=== PATIENT | female | born 1985 | race African-American/Black ===

== ENCOUNTER 2017-10-10 08:19 | Emergency (ER) | payer SELFPAY ==
[2017-10-10] MEDS ORDERED: BENZONATATE 100 MG CAPSULE PO ONE (08:58)
--- NOTE | 2017-10-10 09:10 | ER Document Report ---
HPI - HPI Patient complains to provider of: sore throat, cough Onset: Other - 2 days ago Onset/Duration: Persistent Quality of pain: Achy, Other - coughing, sore throat Severity: Moderate Pain Level: 3 Context: Patient presents to emergency department with complaints of sore throat since and a coughing with some blood noted since yesterday. Denies fever vomiting diarrhea. Reports she works at a [employer] and has been around a lot of sick people. Reports history of bronchitis. Has not taken any OTC medications. Associated Symptoms: Nonproductive cough, Sore throat. denies: Body/muscle aches, Diarrhea, Fever Exacerbated by: Denies Relieved by: Denies Similar symptoms previously: No Recently seen / treated by doctor: No - REPRODUCTIVE Reproductive: DENIES: : Past Medical History - General Information source: Patient Last Menstrual Period: 2 weeks ago - Social History Smoking Status: Unknown if Ever Smoked Cigarette use (# per day): No Chew tobacco use (# tins/day): No Frequency of alcohol use: None Drug Abuse: None Occupation: [employer] Family History: Reviewed & Not Pertinent, Other - Negative for VTE Pulmonary Medical History: Reports: Hx Bronchitis Neurological Medical History: Reports: Hx Seizures - Began when she was 23 years old Endocrine Medical History: Reports: Hx Diabetes Mellitus Type 2 - gestational Past Surgical History: Reports: Hx Oral Surgery - Immunizations Hx Diphtheria, Pertussis, Tetanus Vaccination: Yes - 2008 Vertical Provider Document - CONSTITUTIONAL Agree With Documented VS: Yes Exam Limitations: No Limitations General Appearance: WD/WN, No Apparent Distress - INFECTION CONTROL TRAVEL OUTSIDE OF THE [place] IN LAST 30 DAYS: No - HEENT HEENT: Atraumatic, Normocephalic, Pharyngeal Erythema - opens mouth wide, clear voice, good airway. negative: Conjuctival Injection, Pharyngeal Exudate, Tympanic Membrane Red, Tympanic Membrane Bulging - NECK Neck: Normal Inspection, Supple. negative: Lymphadenopathy-Left, Lymphadenopathy-Right - RESPIRATORY Respiratory: Breath Sounds Normal, No Respiratory Distress - frequent dry cough. negative: Rhonchi, Wheezing - CARDIOVASCULAR Cardiovascular: Regular Rate - GI/ABDOMEN Gastrointestinal: Abdomen Soft, Abdomen Non-Tender - MUSCULOSKELETAL/EXTREMETIES Musculoskeletal/Extremeties: MAEW, FROM - NEURO Level of Consciousness: Awake, Alert, Appropriate Motor/Sensory: No Motor Deficit - DERM Integumentary: Warm, Dry, No Rash Course - Re-evaluation Re-evalutation: 10/10/17 10:28 neg chest xray, strep neg, pt calm, no active coughing, instructed on tessalaism ricks, importance of fu, verbalized understanding - Vital Signs Vital signs: 10/10/17 09:08 99- 108- 20- 114/75- 98% - Diagnostic Test Radiology reviewed: Image reviewed, Reports reviewed - neg no pneumonia Discharge - Discharge Clinical Impression: Cough, Sore throat Condition: Stable Disposition: HOME, SELF-CARE Instructions: Sore Throat ([facility]), Tessalon Perles ([facility]) Additional Instructions: *You have been evaluated for cold symptoms today, cough, sore throat *Increase fluid intake *good handwashing *Take medication as prescribed for cough *Monitor your temperature, take Tylenol as indicated *Follow up with a primary care provider within one week for recheck *Return to ED for worsening condition, changes, needs, concerns, worsening cough , fever Prescriptions: Benzonatate [Tessalon Perles 100 mg Capsule] 100 mg PO ASDIR PRN #40 capsule PRN Reason: Forms: Return to Work Referrals: RAJAT DOLL MD [Primary Care Provider] - Follow up in 1 week
--- NOTE | 2017-10-10 09:44 | RADIOLOGY REPORT (SQ) ---
EXAM DESCRIPTION: CHEST PA/LAT COMPLETED DATE/TIME: 10/10/2017 9:25 am REASON FOR STUDY: cough COMPARISON: 02/03/2015 EXAM PARAMETERS: NUMBER OF VIEWS: two views TECHNIQUE: Digital Frontal and Lateral radiographic views of the chest acquired. RADIATION DOSE: NA LIMITATIONS: none FINDINGS: LUNGS AND PLEURA: No opacities, masses or pneumothorax. No pleural effusion. MEDIASTINUM AND HILAR STRUCTURES: No masses or contour abnormalities. HEART AND VASCULAR STRUCTURES: Heart normal size. No evidence for failure. BONES: No acute findings. HARDWARE: None in the chest. OTHER: No other significant finding. IMPRESSION: NO SIGNIFICANT RADIOGRAPHIC FINDING IN THE CHEST. TECHNICAL DOCUMENTATION: JOB ID: [id number] [employer]- All Rights Reserved
[2017-10-10 10:06] VITALS: BP 105/67
== END 2017-10-10 10:06 | disposition home or self-care (01) ==
LOC: ER 08:19
DX: J02.9 Acute pharyngitis, unspecified (principal); R04.2 Hemoptysis
CPT/HCPCS: 71046; 87070; 87880; 99283